=== PATIENT | female | born 1960 | race Caucasian/White ===

== ENCOUNTER → 2018-09-15 10:10 | Outpatient (CLI) | payer OTHER, SELFPAY ==
--- NOTE | 2018-09-15 10:16 | XR_ITS ---
EXAM: XR cervical spine 5V HISTORY: Generalized neck pain ITS.REASON: NECK DISORDER ORDERING PHYSICIAN: Richmond Duran MD PATIENT AGE: 58 years COMPARISON: None FINDINGS: There is normal curvature and alignment. A swimmer's view was obtained for better evaluation of the cervical thoracic junction and C1-C7 appear intact with no fracture or subluxation noted. Oblique films reveal minimal neural foraminal narrowing on the right side C4-5 likely secondary to spurring of the uncinate joints, the prevertebral soft tissues are normal and the odontoid is normal. Otherwise the bilateral neural foramina appear normal. There are mild osteoarthritic changes of the apophyseal joints bilaterally. IMPRESSION: Mild arthritic changes as described along with mild neural foraminal narrowing right side C4-5
== END ==
PROVIDERS: PCP Family Medicine; Visit Provider Family Medicine
DX: M53.82 Other specified dorsopathies, cervical region (principal)
CPT/HCPCS: 72050

== ENCOUNTER → 2019-08-18 07:47 | Outpatient (CLI) | payer OTHER, SELFPAY ==
--- NOTE | 2019-08-18 07:49 | MM_ITS ---
PROCEDURE: MM DIG SCREENING MAMM BI W/CAD CLINICAL INDICATION: SCREENING COMPARISON: DMSB DIGITAL MAMM-SCREEN BILATERAL from 02/01/2011 DMBAV DIG MAMM-BILATERAL ADD VIEWS from 04/20/2011 SBWCR STEROTATIC BX W/CLIP-RT from 05/16/2011 DMSB DIG MAMM-SCREEN BONIFACIO W/CAD from 06/12/2017 TECHNIQUE: Standard CC and MLO images were obtained. R2 CAD reviewed. FINDINGS: Moderate diffuse fibroglandular densities are seen in both breasts. There are stable benign-appearing nodular densities near the axillary tail right breast. There is a biopsy clip upper outer quadrant right breast. There are 2 stable benign-appearing nodular densities left breast 1 in the inner quadrant other outer quadrant there is no suspicious lesion in either breast and no suspicious microcalcifications. There are several fatty replaced nodes in both axilla. IMPRESSION: Fibrofatty parenchyma with no suspicious lesions seen BI-RAD Category: 2 Benign Finding(s) FOLLOW-UP: 1YR 1 Year Follow-up (A letter has been sent to the patient regarding results of the study.) Dictated by: Dr. Michael Low MD 08/19/2019 17:[address] Michael Low MD in [place] 08/19/2019 17:02
== END ==
PROVIDERS: PCP Family Medicine; Visit Provider Family Medicine
DX: Z12.31 Encounter for screening mammogram for malignant neoplasm of breast (principal)
CPT/HCPCS: 77067

== ENCOUNTER → 2020-06-23 12:27 | Outpatient (CLI) | payer OTHER, SELFPAY | PROVIDERS: PCP Family Medicine; Visit Provider Family Medicine | DX: G47.33 Obstructive sleep apnea (adult) (pediatric) (principal); R06.83 Snoring; I10 Essential (primary) hypertension; E66.9 Obesity, unspecified | CPT/HCPCS: G0399 ==

== ENCOUNTER → 2021-06-09 08:43 | Outpatient (CLI) | payer OTHER, SELFPAY ==
--- NOTE | 2021-06-09 08:47 | XR_ITS ---
PROCEDURE: XR CERVICAL SPINE 3V CLINICAL INDICATION: PARESTHESIA AND PAIN OF RT EXTREMITY COMPARISON: CR [id number] XR cervical spine 5V from 09/15/2018 FINDINGS: Normal alignment. No acute fracture or dislocation. There is mild degenerative disc disease at C6-C7. Prominent facet hypertrophic changes are present C3-C7 overall not significantly changed. Other findings:None. IMPRESSION: Facet arthritic changes with mild degenerative disc disease at C6-C7 Dictated by: Luis Marion MD 06/09/2021 12:19 Luis Marion MD in [facility] 06/09/2021 12:19
--- NOTE | 2021-06-09 08:47 | XR_ITS ---
PROCEDURE: XR SHOULDER RT MIN 2V CLINICAL INDICATION: RT SHOULDER PAIN COMPARISON: No exams were available for comparison FINDINGS: No fracture or dislocation. No lytic or blastic change. There is normal mineralization. There are mild osteoarthritic changes of the acromioclavicular and glenohumeral joint. No significant subacromial stenosis. There is some cortical regularity of the greater tuberosity which may be seen with rotator cuff disease. Other findings:None. IMPRESSION: Mild osteoarthritic change with cortical irregularity of the greater tuberosity which may be seen with rotator cuff disease Dictated by: uLis Marion MD 06/09/2021 12:11 Luis Marion MD in [facility] 06/09/2021 12:11
== END ==
PROVIDERS: PCP Family Medicine; Visit Provider Physician Assistant
DX: M25.511 Pain in right shoulder (principal); M79.601 Pain in right arm
CPT/HCPCS: 72040; 73030

== ENCOUNTER → 2022-01-26 12:05 | Outpatient (CLI) | payer OTHER, SELFPAY ==
--- NOTE | 2022-01-26 12:09 | XR_ITS ---
FINAL REPORT CLINICAL HISTORY: RT KNEE PAIN, UNSPECIFIED CHRONICITY FINDINGS: Three views of the right knee reveal no evidence of fracture or dislocation. The bony alignment is normal. There is moderate to severe medial compartment degenerative change. There are mild degenerative changes elsewhere. There is no evidence of joint effusion. No localized soft tissue abnormality is identified. IMPRESSION: Degenerative changes ranging from mild to moderate to severe in the medial compartment. Reviewed, Interpreted and Dictated by Sean Hernández III, MD Transcribed by Norbert Singleton Authenticated by Sean Hernández III, MD on 01/26/2022 01:35:[address] [facility]
== END ==
PROVIDERS: PCP Family Medicine; Visit Provider Physician Assistant
DX: M25.561 Pain in right knee (principal)
CPT/HCPCS: 73562

== ENCOUNTER → 2022-02-01 07:14 | Outpatient (CLI) | payer OTHER, SELFPAY | PROVIDERS: PCP Family Medicine; Visit Provider Physician Assistant | DX: R06.02 Shortness of breath (principal) | CPT/HCPCS: 78452; 93017; A9502 ==

== ENCOUNTER → 2022-02-19 07:29 | Outpatient (CLI) | payer OTHER, SELFPAY ==
[2022-02-19 08:24] LABS: Basophils % 0.9 % (0.1-2.0); Eosinophils # 0.1 K/mm3 (0.0-0.4); Eosinophils % 1.6 % (0.1-12.0); Hematocrit 40.4 % (37.0-47.0); Hemoglobin 13.7 g/dL (12.2-16.2); Lymphocytes # 1.4 K/mm3 (0.7-4.5); Lymphocytes % 32.3 % (10-50); Mean Corpuscular Hemoglobin 31.3 pg (27.0-31.2); Mean Platelet Volume 8.4 fl (7.4-10.4); Monocytes # 0.2 K/mm3 (0.1-1.0); Monocytes % 5.2 % (1.7-9.3); Neutrophils # 2.6 K/mm3 (1.8-7.8); Platelet Count 180 K/mm3 (142-424); Red Blood Count 4.39 M/mm3 (4.20-5.40); Red Cell Distribution Width 14.5 % (11.5-17.5); White Blood Count 4.3 K/mm3 (4.8-10.8)
[2022-02-19 09:35] LABS: Chloride 107 mmol/L (98-107)
[2022-02-19 09:36] LABS: Potassium 3.6 mmoL/L (3.5-5.1); Sodium 139 mmol/L (136-145)
[2022-02-19 09:38] LABS: Alanine Aminotransferase 31 U/L (12-78); Alkaline Phosphatase 47 U/L (38-126); Anion Gap 10.6 mEq/L (5-15); Aspartate Amino Transferase 26 U/L (14-36); Bilirubin,Direct 0.1 mg/dl (0.0-0.4); Bilirubin,Indirect 0.3 mg/dL (0.0-0.9); Bilirubin,Total 0.4 mg/dl (0.2-1.3); Bilirubin,Unconjugated 0.4 mg/dL (0.0-1.1); Blood Urea Nitrogen 18 mg/dl (7-17); Carbon Dioxide 25 mmol/L (22.0-30.0); Cholesterol 248 mg/dl (140-200); Estimated Glomerular Filt Rate 101 ml/min (>60); GFR (African American) 123 ML/MIN (>60); Glucose 130 mg/dl (74-100); Triglycerides 323 mg/dl (30-150); VLDL Cholesterol 65 mg/dL (0-40)
[2022-02-19 09:39] LABS: Calcium 9.1 mg/dl (8.4-10.2); Chol/HDL Ratio 5.3 (1-3.5); HDL Cholesterol 47 mg/dl (40-60); Magnesium 1.9 mg/dl (1.6-2.3); Total Protein,Serum 6.4 g/dl (6.3-8.2)
[2022-02-19 09:50] LABS: Direct LDL Cholesterol 138.76 mg/dL (100-129)
[2022-02-19 09:54] LABS: Free T4 (Free Thyroxine) 0.92 ng/dl (0.78-2.19)
[2022-02-19 10:10] LABS: Thyroid Stimulating Hormone 3.03 uIU/mL (0.465-4.68)
== END ==
PROVIDERS: PCP Family Medicine; Visit Provider Nurse Practitioner Family
DX: R06.00 Dyspnea, unspecified (principal); R00.2 Palpitations; R53.83 Other fatigue; R94.30 Abnormal result of cardiovascular function study, unspecified; R94.31 Abnormal electrocardiogram [ECG] [EKG]; Z01.812 Encounter for preprocedural laboratory examination; Z11.52 Encounter for screening for COVID-19
CPT/HCPCS: 36415; 80048; 80061; 80076; 83735; 84439; 84443; 85025; C9803; U0003; U0005

== ENCOUNTER 2022-02-20 07:55 | Day surgery (SDC) | payer OTHER, SELFPAY ==
[2022-02-20] VITALS (12 sets, daily range): BP systolic 102–164; BP diastolic 54–86; PULSE 42–59; RESP 16–18; O2SAT 95–98; BMI 38.0
--- NOTE | 2022-02-20 07:09 | IR_ITS ---
APPROVED REPORT Patient Location: Outpatient Lathe Set Up Person: SUZI Blackwell RT (R) PROCEDURES Left heart catheterization Left ventriculogram Selective coronary angiogram INDICATION Angina pectoris, High risk abnormal Myoview, Informed consent was obtained prior to the procedure. COMPLICATIONS None Estimated Blood Loss: Less than 10 mls TECHNIQUE One percent lidocaine used to anesthetize the right anterior aspect of the wrist. The right radial artery was accessed via the Seldinger technique. A 6 Tajik sheath was placed in the right radial artery. 2.5 mg of verapamil, 800 mcg of nitroglycerin, 1mg Lidocaine and 5000 U Heparin were given through the arterial sheath. The papa catheter was also used to perform left heart catheterization, left ventriculogram and selective coronary angiogram. At the end of the procedure the sheath was removed good hemostasis was achieved using Traclet band, patient was transferred to the postop holding area in stable condition. ANGIOGRAPHIC RESULTS The left main artery Normal The left anterior descending artery Normal The circumflex artery Normal The right coronary artery Dominant normal The NOE ventriculogram reveals Normal 65% The left ventricular end-diastolic pressure Severely elevated at 30 mmHg IMPRESSION Normal coronary arteries Normal ejection fraction Severely elevated LVEDP consistent diastolic dysfunction Diffuse endothelial dysfunction PLAN 1. Treatment of diastolic dysfunction which is the etiology for patient's angina 2. Treatment of endothelial dysfunction Electronically signed by : Roman Bermudez MD 02/20/2022 11:09:10
--- NOTE | 2022-02-20 08:05 | CA_ITS ---
APPROVED REPORT EXAM: Comprehensive 2D, Doppler, and color-flow Echocardiogram Hydrographer: KURT Godfrey, RVS Ht: 5 ft 3 in Wt: 215lbs BSA: 1.99 BP: 141/85 mmHg Rhythm: Bradycardia Indications: SOA, HTN, HLD, Obesity, Pre-diabetic, Family HX-HD Echo Enhancing Agent Comments: Poor acoustics throughout exam with large body habitus. 2D Dimensions IVSd 1.06 cm F: 0.6-1.0 LVEF (Visual) 49.00 % PWd 1.07 cm F: 0.6 - 1.0 LA Volume 53.30 mL LVDd 4.77 cm F: 3.9 - 5.3 LA Volume Index 26.78 mL/m2 (M/F) 16-34 LVDs 3.50 cm F: 2.2 - 3.5 Aortic Root 2.99 cm F: 2.7 - 3.3 Left Atrium 3.09 cm F: 2.7 - 3.8 LVOT 2.04 cm (M/F) 1.5-2.5 M-Mode Dimensions RVDd 1.90 cm (0.9-2.6) LA Diam 3.77 cm (1.9-4.0) LVDd 4.86 cm (3.5-5.7) Ao Diam 3.58 cm (2.0-3.7) LVDs 3.12 cm (3.5-5.7) IVSd 1.22 cm (0.6-1.1) PWd 0.99 cm (0.6-1.1) EF (Teich) 65.20% EPSs 0.91 cm FS 35.80% EDV (Teich) 110.70 mL TAPSE 2.60 (<1.7) ESV (Teich) 38.50 mL LV Diastology E Decel Time 150.00 (160-240 msec) E/A Ratio 1.35 MED E' 7.80 (< 7 cm/sec) MED A' 9.10 cm/s E'/MED E' Ratio 13.00 (>14) LAT E' 11.00 (<10 cm/sec) LAT A' 6.80 cm/s E/LAT E' Ratio 9.22 (>14) Aortic Valve LVOT Max 112.00 (70-110 cm/s) LVOT VTI 27.27 cm AoV Peak Felix. 106.00 (50-130 cm/s) AO Peak GR. 4.50 mmHg AO Mean GR. 2.30 (<5 mmHg) AO VTI 24.46 (18-25 cm) KENZIE (VTI) 3.64 (2.5-4.5 cm2) Mitral Valve MV A Velocity 75.00 (40-130 cm/s) E/A Ratio 1.35 MV Decel. Time 150.00 (160-240 ms) MV Mean Gr. 1.20 (<2mmHg) Pulmonary Valve PV Peak Velocity 65.00 (50-150 cm/s) Tricuspid Valve TR P. Velocity 208.00 cm/s RAP Estimate 10.00 mmHg RVSP 27.30 mmHg Left Ventricle Technically difficult study because of the patient factors and poor acoustic windows. Left atrium is mildly enlarged, left ventricle is normal size, estimated ejection fraction 55% with no regional wall motion abnormality, diastolic parameters are inconclusive. Right Ventricle Right atrium and right ventricle are normal size and contractility. Aortic Valve Aortic valve is minimally thickened and calcified without aortic stenosis or aortic insufficiency. Mitral Valve Mitral valve grossly normal, there is trace mitral regurgitation. Tricuspid Valve Tricuspid valve grossly normal, there is trace tricuspid regurgitation, tricuspid regurgitation jet velocity is inadequate for calculation of the right ventricular systolic pressure. Pulmonic Valve Pulmonic valve is poorly visualized. Great Vessels Aortic root is normal size. Inferior vena cava is poorly visualized. Pericardium No significant pericardial effusion noted. Conclusion 1. Mildly enlarged left atrium, normal left ventricular size, estimated ejection fraction 55% with no regional wall motion abnormality, diastolic parameters are inconclusive. 2. Trace mitral and tricuspid regurgitation. 3. No significant pericardial effusion noted. 4. Inferior vena cava is poorly visualized. Electronically signed by : Don Bonilla MD 02/21/2022 11:55:53
== END 2022-02-20 14:09 | disposition home or self-care (01) ==
LOC: CATHLAB 08:02
PROVIDERS: PCP Family Medicine; Visit Provider Internal Medicine
DX: R94.30 Abnormal result of cardiovascular function study, unspecified (principal); R07.9 Chest pain, unspecified; R00.2 Palpitations; R06.00 Dyspnea, unspecified; R94.31 Abnormal electrocardiogram [ECG] [EKG]; Z79.899 Other long term (current) drug therapy
CPT/HCPCS: 93306; 93458; 99152; C1725; C1769; J1644; Q9967

== ENCOUNTER → 2022-03-01 09:45 | Outpatient (CLI) | payer OTHER, SELFPAY ==
--- NOTE | 2022-03-01 09:48 | XR_ITS ---
FINAL REPORT CLINICAL HISTORY: anterior knee pain COMPARISON: January 26, 2022 FINDINGS: RIGHT KNEE 3 views of the right knee were obtained. There is no acute fracture or dislocation. There is moderate and severe degenerative change. There is severe medial compartment joint space narrowing. There is a small joint effusion. There is a chronic calcification lateral to the patella. IMPRESSION: Moderate and severe degenerative change with severe medial compartment joint space narrowing. Small joint effusion. Reviewed, Interpreted and Dictated by Sean Hernández III, MD Transcribed by Whitney Sanchez Authenticated and [facility]
== END ==
PROVIDERS: PCP Family Medicine; Visit Provider Orthopaedic Surgery
DX: M25.561 Pain in right knee (principal)
CPT/HCPCS: 73564

== ENCOUNTER → 2022-12-04 09:18 | Outpatient (CLI) | payer OTHER, SELFPAY ==
--- NOTE | 2022-12-04 09:32 | US_ITS ---
FINAL REPORT CLINICAL HISTORY: ABD PAIN FINDINGS: Transvaginal sonographic images of the pelvis were obtained. The uterus is retroverted and measures 7.3 x 4.0 x 2.5 cm. The endometrium measures 12 mm. There is a 4.0 x 3.0 cm uterine fibroid. The right ovary measures 2.3 cm in length and left ovary measures 1.7 cm in length. Normal blood flow seen to the ovaries. There is no evidence of free fluid. IMPRESSION: 4.0 cm uterine fibroid. Reviewed, Interpreted and Dictated by Ari Leonard MD Transcribed by Whitney Sanchez Authenticated and . [facility]
== END ==
PROVIDERS: PCP Family Medicine; Visit Provider Physician Assistant
DX: N92.6 Irregular menstruation, unspecified (principal)
CPT/HCPCS: 76830

== ENCOUNTER → 2022-12-13 07:49 | Outpatient (CLI) | payer OTHER, SELFPAY ==
[2022-12-13 08:06] LABS: Basophils # 0.1 K/mm3 (0-0.2); Basophils % 1.6 % (0.1-2.0); Eosinophils # 0.1 K/mm3 (0.0-0.4); Eosinophils % 2.1 % (0.1-12.0); Hematocrit 42.5 % (37.0-47.0); Hemoglobin 13.8 g/dL (12.2-16.2); Lymphocytes # 1.4 K/mm3 (0.7-4.5); Lymphocytes % 26.4 % (10-50); Mean Corpuscular HGB Conc 32.5 g/dL (31.8-35.4); Mean Corpuscular Hemoglobin 29.7 pg (27.0-31.2); Mean Corpuscular Volume 91.4 fl (81-99); Mean Platelet Volume 8.3 fl (7.4-10.4); Monocytes # 0.4 K/mm3 (0.1-1.0); Monocytes % 7.4 % (1.7-9.3); Neutrophils # 3.2 K/mm3 (1.8-7.8); Neutrophils % 62.4 % (37.0-80.0); Platelet Count 219 K/mm3 (142-424); Red Blood Count 4.65 M/mm3 (4.20-5.40); Red Cell Distribution Width 14.2 % (11.5-17.5); White Blood Count 5.2 K/mm3 (4.8-10.8)
[2022-12-13 09:09] LABS: Chloride 103 mmol/L (98-107)
[2022-12-13 09:10] LABS: Potassium 3.8 mmoL/L (3.5-5.1); Sodium 137 mmol/L (136-145)
[2022-12-13 09:12] LABS: Alanine Aminotransferase 29 U/L (12-78); Albumin Level 4.5 g/dl (3.5-5.0); Alkaline Phosphatase 54 U/L (38-126); Anion Gap 11.8 mEq/L (5-15); Aspartate Amino Transferase 25 U/L (14-36); Bilirubin,Total 0.4 mg/dl (0.2-1.3); Blood Urea Nitrogen 16 mg/dl (7-17); Carbon Dioxide 26 mmol/L (22.0-30.0); Cholesterol 241 mg/dl (140-200); Estimated Glomerular Filt Rate 72 ml/min (>60); GFR (African American) 88 ML/MIN (>60); Globulin 2.3 g/dL (1.3-3.2); Total Protein,Serum 6.8 g/dl (6.3-8.2); Triglycerides 344 mg/dl (30-150); VLDL Cholesterol 69 mg/dL (0-40)
[2022-12-13 09:13] LABS: Calcium 8.8 mg/dl (8.4-10.2); Chol/HDL Ratio 5.9 (1-3.5); Glucose 109 mg/dl (74-100); HDL Cholesterol 41 mg/dl (40-60)
[2022-12-13 09:24] LABS: Direct LDL Cholesterol 120.99 mg/dL (100-129)
[2022-12-13 09:29] LABS: 25-OH Vitamin D, Total 31.5 ng/mL (30-100)
[2022-12-13 09:43] LABS: Thyroid Stimulating Hormone 1.99 uIU/mL (0.465-4.68)
[2022-12-13 10:11] LABS: Vitamin B12 311 pg/mL (239-931)
[2022-12-13 16:29] LABS: Hemoglobin A1C 5.7 % (4.0-6.0)
== END ==
PROVIDERS: PCP Family Medicine; Visit Provider Physician Assistant
DX: I10 Essential (primary) hypertension (principal); E78.00 Pure hypercholesterolemia, unspecified; E53.8 Deficiency of other specified B group vitamins; N92.6 Irregular menstruation, unspecified; E55.9 Vitamin D deficiency, unspecified; R73.01 Impaired fasting glucose
CPT/HCPCS: 36415; 80053; 80061; 82306; 82607; 83036; 84443; 85025

== ENCOUNTER → 2022-12-17 13:37 | Outpatient (CLI) | payer OTHER, SELFPAY ==
[2022-12-19 10:05] LABS: Estradiol 12.9 pg/mL (.); FSH 35.6 mIU/mL (.)
== END ==
PROVIDERS: PCP Family Medicine; Visit Provider Obstetrics & Gynecology
DX: N93.9 Abnormal uterine and vaginal bleeding, unspecified (principal)
CPT/HCPCS: 36415; 82670; 83001; 83002

== ENCOUNTER → 2023-01-29 11:45 | Outpatient (CLI) | payer OTHER, SELFPAY ==
[2023-01-29 12:40] LABS: Basophils # 0.1 K/mm3 (0-0.2); Basophils % 0.6 % (0.1-2.0); Eosinophils # 0.1 K/mm3 (0.0-0.4); Eosinophils % 0.8 % (0.1-12.0); Hemoglobin 14.5 g/dL (12.2-16.2); Lymphocytes # 1.7 K/mm3 (0.7-4.5); Lymphocytes % 19.7 % (10-50); Mean Corpuscular HGB Conc 33.6 g/dL (31.8-35.4); Mean Corpuscular Volume 89.1 fl (81-99); Mean Platelet Volume 8.6 fl (7.4-10.4); Monocytes # 0.5 K/mm3 (0.1-1.0); Monocytes % 6.4 % (1.7-9.3); Neutrophils % 72.4 % (37.0-80.0); Platelet Count 234 K/mm3 (142-424); Red Blood Count 4.83 M/mm3 (4.20-5.40); Red Cell Distribution Width 14.3 % (11.5-17.5); White Blood Count 8.3 K/mm3 (4.8-10.8)
[2023-01-29 13:38] LABS: Alanine Aminotransferase 29 U/L (12-78); Albumin Level 4.9 g/dl (3.5-5.0); Albumin/Globulin Ratio 1.9 (1.1-1.8); Alkaline Phosphatase 59 U/L (38-126); Anion Gap 18.1 mEq/L (5-15); Aspartate Amino Transferase 28 U/L (14-36); Bilirubin,Total 0.6 mg/dl (0.2-1.3); Blood Urea Nitrogen 17 mg/dl (7-17); Calcium 9.4 mg/dl (8.4-10.2); Carbon Dioxide 27 mmol/L (22.0-30.0); Chloride 97 mmol/L (98-107); Estimated Glomerular Filt Rate 85 ml/min (>60); GFR (African American) 102 ML/MIN (>60); Globulin 2.6 g/dL (1.3-3.2); Glucose 90 mg/dl (74-100); Potassium 4.1 mmoL/L (3.5-5.1); Sodium 138 mmol/L (136-145); Total Protein,Serum 7.5 g/dl (6.3-8.2)
[2023-01-29 13:55] LABS: HCG,Quantitative 5 mIU/ml (0-5.42)
== END ==
PROVIDERS: PCP Family Medicine; Visit Provider Obstetrics & Gynecology
DX: Z01.812 Encounter for preprocedural laboratory examination (principal); N93.9 Abnormal uterine and vaginal bleeding, unspecified
CPT/HCPCS: 36415; 80053; 84702; 85025

== ENCOUNTER 2023-02-04 06:02 | Day surgery (SDC) | payer OTHER, SELFPAY ==
[2023-01-30 12:31] VITALS: BMI 38.9
[2023-02-04] VITALS (13 sets, daily range): BP systolic 102–122; BP diastolic 57–78; PULSE 64–75; RESP 14–18; TEMP 36.2–43; O2SAT 91–99
[2023-02-04 06:38] LABS: POC Glucose,Bedside 127 (70-110)
[2023-02-04 07:40] LABS: HCG,Quantitative 3 mIU/ml (0-5.42)
--- NOTE | 2023-02-04 07:53 | EXP.ANES.CKL ---
[facility] Disclaimer: The information contained in this section may have been updated after the patient was seen, as this information can be updated by other users. Medical History Abnormal uterine bleeding History of hyperlipidemia History of hypertension Uterine fibroid Surgical History History of appendectomy History of tonsillectomy Family History Other Cancer Coronary artery disease Diabetes Heart attack Hyperlipidemia Hypertension Stroke Social History (Updated 02/04/23 @ 06:35 by Beth Chen RN) Smoking Status: Never smoker second hand exposure: No alcohol intake: never substance use type: denies use current occupational status: employed Travel in the last 8 weeks: None household members: spouse and other housing: house current occupational exposures/hazards: No caffeine: Yes [facility] Anesthesia Checklist Patient Identification Patient Identification: Arm Band Structural Data Admitted From: Home Planned Operative Procedure/s: Hysteroscopy, D&C, Novasure/Myosure Ablation Consent for Planned Operative Procedure(s) Verified: Yes Verified Documents: Surgical Consent and History and Physical NPO Status Verified Time NPO: 00:00 Additional verifications Anesthesia Reactions: No Hx Blood Transfusions: No Blood Transfusion Reaction: No Airway Assessment C-Spine Mobility Assessed: Yes TMJ Mobility Assessed: Yes Dentition: Good Dentition Neurological Assessment Level of Consciousness: Awake and Alert Anesthesia Plan Anesthesia Risk discussed: Yes Anesthesia Plan: Verified ASA Class: II Anesthesia Type: General
--- NOTE | 2023-02-04 08:20 | P.PNANES_ITS ---
[facility] Anesthesia Record Part I Anesthesia Record I Intake, IV Amount: 600 Estimated blood loss (mL): 5 Urine output (mL): 0 Blood Pressure: 104/71 SaO2: 91 Pulse Rate: 70 Respiratory Rate: 16 Temperature: 98.8 F Patient is:: Drowsy and Stable Stable to PACU at:: 08:20
--- NOTE | 2023-02-04 08:22 | P.OP_ITS ---
Date of procedure: 02/04/23 Pre-op Diagnosis:: 1. Abnormal uterine bleeding 2. Uterine fibroid Post-op Diagnosis:: 1. Abnormal uterine bleeding 2. Uterine fibroid 3. Endometrial polyp 4. Stage 3 Rectocele Procedure performed:: 1. Hysteroscopy, Dilation, Myosure polypectomy and curettage Surgeon:: Shreya Bailey DO Utilization Management Um Nurse(s):: N/a BOTTLE MACHINE OPERATOR:: Gonzales Jacobson Anesthesia: GETA Estimated blood loss (mL): 5 Clinical Note:: Ms Kirby Barry is a 62 yo P1001 who presents to [facility] for scheduled procedure. Patient states she has never been 1 year without a period. She seems to have a period every 6-8 months. Flow lasts a few days. She admits to hot flashes and night sweats but states they are better than they used to be. Pelvic ultrasound 12/04/22 demonstrated a 4 cm uterine fibroid and endometrial thickness 12 mm. Ovaries within normal limits. TSH 12/13/22 within normal limits. Estradiol and FSH are in postmenopausal range. Last period was August 2022. She admits sometimes she will go 8-9 months between periods. Bleeding is usually light but sometimes it is heavy and can be brown, dark red or red. She admits the past few weeks her hot flashes have been more intense and more frequent. Operative findings:: 1. On bimanual exam, uterus normal size and shape, midline. No adnexal massess palpated. Stage 3 rectocele appreciated in dorsal lithotomy position 2. On hysteroscopic exam, large endometrial polyp seen. Bilateral tubal ostia easily visualized after removal of polyp Operative note:: Risks, benefits and alternatives were discussed with the patient. Risks include but are not limited to bleeding, infection, uterine perforation and VTE. Patient voiced understanding and agreed to proceed. She was wheeled back to the operating room and placed under general anesthesia without difficulty. She was placed in dorsal lithotomy position and prepped and draped in the normal sterile fashion. A bimanual exam was performed. A weighted Auvard was placed in the vaginal vault. Single tooth tenaculum was placed on anterior lip of the cervix. Uterus sounded to 10. Sequential Trent dilators were used to dilate the cervical os. Hysteroscope was inserted through the cervix without difficulty. Endometrial cavity was evaluated. See findings above. Pictures were taken. Myosure was inserted through the hysteroscope. Myosure curettage was used to perform polypectomy then curettage was performed per protocol in a 360 degree fashion under direct visualization. A moderate amount of tissue was obtained. Pictures were taken. Hysteroscope with Myosure was removed. Tenaculum site had small amount of oozing. Silver nitrate applied. Small amount of oozing continued. 2-0 Chromic was used to suture ligate tenaculum site. Hemostasis was noted. Patient was awaken from anesthesia without difficulty. She was transported to recovery room in stable condition. Patient will be discharged home when awake and ambulating. She was given postop instructions as well as instructions to follow-up in the office in 2 weeks. Condition: stable Disposition: same day Specimens:: 1. Endometrial curettings Complications:: None
[2023-02-04 08:52] LABS: POC Glucose,Bedside 151 (70-110)
--- NOTE | 2023-02-04 10:34 | SUR.PREOP ---
0725- At this time, ARIELA Mccullough called the lab to check on the time remaining before results would be finalized on the type & screen and repeat HCG for this pt. Lab informed her of 17 minutes remaining on the HCG results and 25 minutes remaining on type & screen results. ARIELA Mccullough relayed this information to this RN and ELLEN Lee. ELLEN Lee and this RN informed DO Analia of the time remaining, in which the DO and PARTITION ASSEMBLY MACHINE OPERATOR came to an agreement on going back to OR without waiting for results on previously mentioned labs. Both PARTITION ASSEMBLY MACHINE OPERATOR and DO aware of situation and gave the okay to move forward.
--- NOTE | 2023-02-04 13:49 | EXP.ANES.II ---
[facility] Anesthesia Record Part II Anesthesia Record Part II Discharge Time: 08:50 Destination: Surgical Day Care (OP Surgery) PACU nurse assessment reviewed?: Yes Patient Condition:: Good Anesthesia Complications:: None Swallowing reflex intact?: Yes Cyanosis?: No Blood Pressure: 102/64 Pulse Rate: 68 Temperature: 97.1 F Mental Status: Alert & Oriented Pain level:: 3 Nausea and/or vomitting:: None Intake, IV Amount: 0
== END 2023-02-04 09:43 | disposition home or self-care (01) ==
PROVIDERS: PCP Family Medicine; Visit Provider Obstetrics & Gynecology
PROC: (CPT 58558; principal; 2023-02-04 07:30)
DX: N84.0 Polyp of corpus uteri (principal); D25.9 Leiomyoma of uterus, unspecified; N81.6 Rectocele; N93.9 Abnormal uterine and vaginal bleeding, unspecified; Z79.899 Other long term (current) drug therapy; E11.9 Type 2 diabetes mellitus without complications
CPT/HCPCS: 58558; 36415; 82962; 84702; 86850; J2405

== ENCOUNTER → 2023-07-10 09:52 | Outpatient (CLI) | payer BC, SELFPAY ==
--- NOTE | 2023-07-10 09:56 | XR_ITS ---
FINAL REPORT CLINICAL HISTORY: LOW BACK PAIN x 2 weeks COMPARISON: None FINDINGS: LUMBOSACRAL SPINE SERIES Five views of the lumbosacral spine were obtained. There is no fracture present. There is no malalignment. There is mild degenerative change of the lower lumbar spine with facet arthropathy. IMPRESSION: Mild degenerative change without acute process. Reviewed, Interpreted and Dictated by Sean Hernández III, MD Transcribed by Pamella Gotti Authenticated and [facility]
== END ==
PROVIDERS: PCP Family Medicine; Visit Provider Physician Assistant
DX: M54.50 Low back pain, unspecified (principal)
CPT/HCPCS: 72110

== ENCOUNTER 2023-10-02 09:25 | Outpatient (CLI) | payer BC, SELFPAY ==
--- NOTE | 2023-10-02 09:31 | MM_ITS ---
PROCEDURE INFORMATION: Exam: MG Bilateral Screening 3D Mammography Exam date and time: 10/02/2023 9:33 AM Age: 63 years old Clinical indication: Screening mammogram TECHNIQUE: Imaging protocol: Bilateral Screening tomosynthesis and 2D mammography including computer-aided detection (CAD) when performed. COMPARISON: 1. MG MM DIG SCREENING MAMM BI W/CAD 08/18/2019 8:14 AM 2. MG DMSB DIG MAMM-SCREEN BONIFACIO W/CAD 06/12/2017 8:42 AM 3. MG SBWCR STEROTATIC BX W/CLIP-RT 05/16/2011 9:33 AM 4. MG DMBAV DIG MAMM-BILATERAL ADD VIEWS 04/20/2011 1:01 PM FINDINGS: MAMMOGRAPHY: Breast composition: There are scattered areas of fibroglandular density. Mass: Stable benign-appearing subcentimeter nodules are present in the left breast. No new or morphologically suspicious nodule has developed to suggest malignancy. Architectural distortion: No new or suspicious architectural distortion. Calcifications: No new or suspicious calcifications are present Asymmetric density: No new or suspicious asymmetric density is present Skin thickening: None. Axillary adenopathy: None. IMPRESSION: No mammographic evidence of malignancy. Recommend annual screening mammography unless otherwise clinically indicated. ASSESSMENT: BI-RADS category 2: Benign
--- NOTE | 2023-10-02 09:31 | XR_ITS ---
FINAL REPORT TECHNIQUE: Bone densitometry calculations of the lumbar spine and left hip were obtained. CLINICAL HISTORY: . FINDINGS: Using L1-4, the bone mineral density of the spine is 1.076 g/cm2, corresponding to T-score of 0.1. Using the left hip, the bone mineral density of the femoral neck is 0.965 g/cm2, corresponding to a T-score of 1.0. Using the right hip, the bone mineral density of the femoral neck is 0.890 there is no g/cm2, corresponding to a T-score of 0.4 NOTE: T-score: Standard deviation compared with peak bone mass of young adult mean. *Following the recommendations of the International Society of Bone densitometry, classification of hip BMD is based on the lower of two T-scores; total hip or femoral neck. IMPRESSION: Normal bone mineral density of the lumbar spine and hip. FRAX was not reported because all of the T-scores are at or above -1.0. Reviewed, Interpreted and Dictated by Sean Hernández III, MD Transcribed by Kalli Parson Authenticated and [facility]
== END 2023-10-02 23:59 ==
LOC: RAD 09:26
PROVIDERS: PCP Family Medicine; Visit Provider Family Medicine
DX: N95.1 Menopausal and female climacteric states (principal); Z12.39 Encounter for other screening for malignant neoplasm of breast
CPT/HCPCS: 77063; 77067; 77080

== ENCOUNTER 2025-03-30 07:47 | Outpatient (CLI) | payer MEDICARE, SELFPAY ==
--- NOTE | 2025-03-30 07:48 | MM_ITS ---
PROCEDURE INFORMATION: Exam: MG Bilateral Screening 3D Mammography Exam date and time: 03/30/2025 7:53 AM Age: 64 years old Clinical indication: Screening examination. A maternal aunt had breast cancer. TECHNIQUE: Imaging protocol: Bilateral Screening tomosynthesis and 2D mammography including computer-aided detection (CAD) when performed. COMPARISON: 1. MG MM DIG SCREENING MAMM BI W/CAD 10/02/2023 9:33 AM 2. MG MM DIG SCREENING MAMM BI W/CAD 08/18/2019 8:14 AM 3. MG DMSB DIG MAMM-SCREEN BONIFACIO W/CAD 06/12/2017 8:42 AM 4. MG SBWCR STEROTATIC BX W/CLIP-RT 05/16/2011 9:33 AM FINDINGS: MAMMOGRAPHY: Breast composition: There are scattered areas of fibroglandular density. Mass: No suspicious mass. Architectural distortion: None. Calcifications: No suspicious calcifications. Asymmetric density: None. Skin thickening: None. Axillary adenopathy: None. IMPRESSION: No mammographic evidence of malignancy. Annual screening is recommended unless otherwise clinically indicated. ASSESSMENT: BI-RADS Category 1: Negative.
--- OUTSIDE RECORDS SUMMARY | 2025-03-30 07:49 | XMS_ITS | Data Portability ---
Author Organization [facility] SW[facility] [place] [facility] Address [address] [place] [address] Care Team Providers Care Beamer Hand Name Role Phone ALVERTO ANDERSON Primary Care Provider AMEE MONTES DE OCA Pricing Actuary Assessment No assessment recorded. Plan of Treatment Reminders Order Date Submit Date Provider Last Modified By Organization Details Last Modified Time Details Appointments None record ed. Lab None record ed. Referral None record ed. Procedures None record ed. Surgeries None record ed. Imaging None record ed. Medication Orders None record ed. Patient TargetsNo targets recorded. Patient InstructionsNo instructions recorded. Reason for Referral None Reported. Problems Name Problem SNOMED Code Status Onset Date Resolution Date Notes Provider Name and Address Organization Details Recorded Time Inflamed seborrheic keratosis 955679247 Active 024 Heidi Stevenson [facility] 4 10:41:21 Female pattern alopecia 4820690 Active 024 Heidi Stevenson [facility] 4 10:41:32 Problem Notes None recorded. Procedures Surgical History Date Name Laterality Status Provider Name and Address Organization Details Recorded Time 4 DAK - Destruction BN Lesions completed Heidi Stevenson [facility] 06/22/2024 10:53:38 Imaging Results None recorded. Procedure Notes None recorded. Medical Equipment None Reported. Allergies No known drug allergies Medications Name Sig Start Date Stop Date Status Note LastModified by Organization Details LastModified Time paroxetine 10 mg tablet Take 1 tablet every day by oral route. active Not Available Not Available No t Available furosemide active Not Available Not Av ailable Not Available spironolactone active Not Available No t Available Not Available lisinopril active Not Available Not Av ailable Not Available bisoprolol fumarate active Not Available Not Available Not Available celecoxib active Not Available Not Tabitha ilable Not Available rosuvastatin active Not Available Not Available Not Available Vitals None Recorded Social History None recorded. Functional Status None recorded. Mental Status None recorded. Family History Nothing Reported. Medical History No medical history recorded. Gynecological HistoryNo gynecological history recorded. Obstetrics History GPAL:G 0 P 0 0 0 0 Past Encounters Encounter ID Performer Location Encounter Start Date Encounter Closed Date Diagnosis/Indication Diagnosis SNOMED-CT Code Diagnosis ICD10 Code Diagnosis Note [id number] AMEE MONTES DE OCA PA-C [address] [id number] 06/22/2024 09:53:10 06/22/2024 12:15:58 Multiple benign melanocytic nevi 180233613 D22.5 - Benign moles seen on exam today - SPF 30 or higher broad-spec trum sunscreen recommende d with re-applica tion every 2 hours - Discussed sun protection measures, including wide-brimm ed hat, sun-protec tive clothing, and avoidance of sun during peak hours of 10am-4pm - Avoid tanning beds as these can increase the chances of all 3 types of skin cancer - Instructed to monitor for changes and to call us for appointmen t with any changing or worrisome lesions Seborrheic keratosis 394 635266 L82.1 - Benign overgrowth s of skin - Hereditary Senile angioma 2854876 I 78.1 - Benign blood vessel growths - Hereditary Solar lentigo 57926560 L 81.4 - Benign brown spots - Sun-induce d Inflamed s eborrheic keratosis 570692618 L82.0 L53.8 Counseled on benign nature. Pt elected to treat with liquid nitrogen due to painful irritation . May recur or persist after treatment. Discolorat ion or scarring is possible. Female pat tern alopecia 5695504 L64.8 Discussed genetic component to hair loss. Discussed that there aren't great treatments for this. Recommende d starting minoxidil 5% (Rogaine) BID to scalp. Discussed that Rogaine must be consistent ly used to maintain results, and if stopped, hair loss will revert to as if it hadn't been used. Must take for 6-12 months for results to show. Pt reports she is already taking Rx Spironolac tone, informed on off label use with hair loss Pt will reach out if worsening or no improvemen t. Health Concerns Section Related Observation LastModified by Organization Detai ls LastModified Time None Recorded Concern Status LastModified by Organization Details LastModified Time None Recorded Advance Directives Directive None Recorded Payers Insurance Date Sequence Insurance Name Policy Number Policy Pugh Covered Member ID Pugh Member ID Guarantor Name 06/22/2024 1 [employer] (MEDICARE REPLACEMENT/ ADVANTAGE - PPO) Kirby Emanuel [id number] Kirby Castellanos Notes Date Note Type Note Provider Name and Address Organization Details Recorded Time 06/22/2024 text/html Patient requests a full body skin exam. Location: Full bodyDuration: AnnualHistory: No personal hxAreas of concern: face Pt is with AMEE MONTES DE OCA PA-C [address] [place], [address], [facility] 06/22/2024 12:56:48 OBGyn Episode No OBEpisode recorded.
--- OUTSIDE RECORDS SUMMARY | 2025-03-30 07:49 | XMS_ITS ---
Author Organization Unknown TREATMENT PLAN [facility] Start Date Provider Encounter for Check-up [id number] [facility]
== END 2025-03-30 23:59 | disposition home or self-care (01) ==
LOC: RAD 07:47
PROVIDERS: PCP Family Medicine; Visit Provider Family Medicine
DX: Z12.31 Encounter for screening mammogram for malignant neoplasm of breast (principal); R92.323 Mammographic fibroglandular density, bilateral breasts
CPT/HCPCS: 77063; 77067